=== PATIENT | male | born 1955 | race Caucasian/White ===

== ENCOUNTER 2017-02-23 11:57 | Emergency (ER) | payer OTHER ==
[2017-02-23 12:01] VITALS: TEMP 98.1; BMI 30.2
[2017-02-23] MEDS ORDERED: OXYCODONE/APAP 5/325MG COMBO TABLET PO ONE (12:10)
[2017-02-23] MEDS ORDERED: OXYCODONE/APAP 5/325MG COMBO TABLET ONE (12:13)
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
[2017-02-23 12:25] VITALS: BP 159/93
[2017-02-23 12:36] VITALS: PULSE 87
== END 2017-02-23 12:40 | disposition home or self-care (01) ==
LOC: FER 11:57
DX: S46.911A Strain of unspecified muscle, fascia and tendon at shoulder and upper arm level, right arm, initial encounter (principal); V42.5XXA Car driver injured in collision with two- or three-wheeled motor vehicle in traffic accident, initial encounter; Y93.89 Activity, other specified; Y92.410 Unspecified street and highway as the place of occurrence of the external cause; I10 Essential (primary) hypertension; K21.9 Gastro-esophageal reflux disease without esophagitis; E78.00 Pure hypercholesterolemia, unspecified
CPT/HCPCS: 99282-25

== ENCOUNTER 2018-01-16 06:22 | Day surgery (SDC) | payer OTHER ==
[2018-01-14 14:02] VITALS: BMI 30.7
[2018-01-16] MEDS ORDERED: LIDOCAINE 1%/EPI 1:100000 (20 ML MULTI DOSE VIAL) ONE (07:23)
[2018-01-16] MEDS ORDERED: BUPIVACAINE HCL/PF 0.5% (5MG/ML) 10 ML VIAL ONE (07:24)
[2018-01-16] MEDS ORDERED: SUCCINYLCHOLINE CHLORIDE 200 MG/10 ML VIAL ONE (08:01)
[2018-01-16] MEDS ORDERED: MIDAZOLAM HCL 2 MG/2 ML SINGLE DOSE VIAL ONE (08:01)
[2018-01-16] MEDS ORDERED: PROPOFOL 20 ML ONE (08:01)
--- NOTE | 2018-01-16 08:05 | HP ---
Satellite [facility] - Chief Complaint Chief Complaint: LEFT KNEE PAIN History Source: Patient - Past Medical History Allergies/Adverse Reactions: Allergies Allergy/AdvReac Type Severity Reaction Status Date / Time No Known Allergies Allergy Verified 02/23/17 11:58 - Current Medications Current Medications: Home Medications Medication Instructions Recorded Amlodipine Besylate [Norvasc -] 10 mg PO DAILY #0 tablet 08/03/13 Aspirin Coated [Ecotrin -] 81 mg PO DAILY #0 tablet.ec 08/03/13 Lansoprazole [Prevacid] 30 mg PO DAILY #0 capsule.dr 08/03/13 Saxagliptin HCl [Onglyza] 5 mg PO DAILY #0 tablet 08/03/13 Valsartan [Diovan] 320 mg PO DAILY #0 tablet 08/03/13 metFORMIN HCL [Glucophage -] 500 mg PO BID #0 tablet 08/03/13 Atorvastatin Ca [Lipitor] 10 mg PO HS 02/23/17 Canagliflozin [Invokana] 100 mg PO DAILY 02/23/17 Glipizide 10 mg PO BID 02/23/17 Dulaglutide [Trulicity] 0.75 mg SQ WEEKLY 01/14/18 Satellite Physical Exam - Physical Examination Vital Signs: Vital Signs Period Temp Pulse Resp BP Sys/Rivera Pulse Ox Last 24 Hr 98.2 F 74 18 149/70 95 Extremities: Other (+ JOINT LINE TENDERNESS) Satellite Impression/Plan - Impression/Plan Impression: INTERNAL DERANGEMENT LEFT KNEE Operative Procedure: ARTHROSCOPY LEFT KNEE Date to be Performed: 01/16/18
[2018-01-16] MEDS ORDERED: BUPIVACAINE HCL/PF 0.5% (5MG/ML) 10 ML VIAL IJ ONE ×2 (08:21→08:29)
[2018-01-16] MEDS ORDERED: LIDOCAINE 1%/EPI 1:100000 (20 ML MULTI DOSE VIAL) IJ ONE ×2 (08:21→08:29)
[2018-01-16] MEDS ORDERED: DEXAMETHASONE SOD PHOSPHATE 4 MG/1 ML VIAL ONE (08:22)
[2018-01-16] MEDS ORDERED: LIDOCAINE HCL/PF 2% SDV 5ML VIAL ONE (08:22)
--- NOTE | 2018-01-16 08:49 | OP ---
Operative Note - Note: Operative Date: 01/16/18 Pre-Operative Diagnosis: internal drangement left knee Operation: arthroscopy left knee with partial mm and lm Post-Operative Diagnosis: Same as Pre-op Surgeon: Zhen Schrader Anesthesia: General Operative Report Dictated: Yes
[2018-01-16 09:31] VITALS: TEMP 97.9
[2018-01-16] MEDS ORDERED: PROMETHAZINE HCL 25 MG/1 ML VIAL IVPB PRN (09:49)
[2018-01-16] MEDS ORDERED: ONDANSETRON 4 MG/2 ML VIAL IVPUSH PRN (09:49)
[2018-01-16] MEDS ORDERED: oxyCODONE HCL 5 MG TABLET PO PRN (09:49)
[2018-01-16] MEDS ORDERED: LACTATED RINGERS SOLUTION 1,000 ML IV SCH (10:00)
[2018-01-16] MEDS ORDERED: oxyCODONE HCL 5 MG TABLET PO ONE (10:04)
--- NOTE | 2018-01-16 10:38 | OP ---
DATE OF OPERATION: 01/16/2018 PREOPERATIVE DIAGNOSIS: Internal derangement, left knee. POSTOPERATIVE DIAGNOSIS: Internal derangement, left knee. PROCEDURE: Arthroscopy left knee with partial medial and lateral meniscectomies. SURGEON: Zhen Schrader MD ANESTHESIA: General with LMA. CLOSURES: 4-0 nylon. COMPLICATIONS: None. CONDITION: To recovery room in stable condition. DESCRIPTION OF PROCEDURE: The patient was taken to the operating room on January 16, 2018. General anesthesia with LMA was administered by the anesthesiologist. The left lower extremity was prepped and draped in the usual sterile fashion. The medial and lateral infrapatellar portal sites were infiltrated with 1% Xylocaine with epinephrine. Both ports were then made with 15 blade by a blunt trocar. The scope was placed in the lateral infrapatellar port up to the suprapatellar pouch. The knee was then infiltrated with a cocktail of 10 mL of 1% Xylocaine, 10 mL 0.5% Marcaine, and 20 mL of arthroscopic saline. The undersurface of the patella and trochlea were visualized to be intact. The medial and lateral gutters were visualized to be intact. With valgus stress on the knee, the medial compartment was entered. Medial meniscus was visualized and found to have a complex tear of its posterior horn. This was debrided back to normal, stable meniscal tissue using a meniscal biter and arthroscopic shaver. The medial femoral tunnel was run and found to be basically intact. At 90 degrees, the ACL was visualized and probed and found to be intact. In a figure-4 position, lateral compartment was entered. Lateral meniscus had some radial tearing of its midportion. This was debrided back to normal, stable, meniscal tissue with meniscal biter and arthroscopic shaver. Lateral and femoral condyles were run and found to be intact as was the lateral tibial plateau. The knee was irrigated with copious amounts of irrigation. The port was closed with 4-0 nylon. Prior to closure, 20 mL of 0.5% Marcaine was infused into the knee for postoperative analgesia. A sterile pressure dressing was placed over the knee. The patient was awakened from anesthesia and transferred to recovery in stable condition. No complications. Estimated blood loss negligible. Geronimo [id number]
[2018-01-16 11:31] VITALS: BP 135/79; PULSE 90
--- NOTE | 2018-01-19 15:34 | PATH ---
Surgical Pathology Report Patient Name: VALENTÍN QUAN Med. Rec. #: [id number] /Age/Gender: 1955 (Age: 62) / M Account: [id number] Location: [facility] SURGICAL Taken: 01/16/2018 Received: 01/16/2018 Reported: 01/19/2018 Physicians: Zhen Schrader M.D. Specimen(s) Received LEFT KNEE SHAVINGS Clinical History Left knee meniscus tear Final Diagnosis KNEE SHAVINGS, LEFT, ARTHROSCOPY AND PARTIAL MENISCUS MEDIAL LATERAL REPAIR: FRAGMENTS OF CARTILAGE, DENSE FIBROCONNECTIVE TISSUE, ADIPOSE TISSUE, AND SYNOVIUM. Electronically Signed Chio Blanco M.D. Gross Description Received in formalin, labeled "left knee shavings," is a 4.5 x 4.0 x 0.4 cm. aggregate of álvarez-yellow soft tissue fragments. A scheduling representative portion is submitted in one cassette. /01/16/2018 saudi01/16/2018
== END 2018-01-16 12:04 | disposition home or self-care (01) ==
LOC: JASU-SURG 06:22
PROVIDERS: ATTEND Orthopaedic Surgery
PROC: 0SBD4ZZ Excision of Left Knee Joint, Percutaneous Endoscopic Approach (ICD-10-PCS; 2018-01-16)
PROC: 0SBD4ZZ Excision of Left Knee Joint, Percutaneous Endoscopic Approach (ICD-10-PCS; principal; 2018-01-16 08:00)
DX: M23.92 Unspecified internal derangement of left knee (principal)
CPT/HCPCS: 82962; 88304-TC; 94760

== ENCOUNTER 2018-02-05 14:25 | Emergency (ER) | payer OTHER ==
[2018-02-05 14:50] VITALS: BMI 31.3
--- NOTE | 2018-02-05 14:52 | PDOC ---
Rapid Medical Evaluation Time Seen by Provider: 02/05/18 14:49 Medical Evaluation: Allergies Allergy/AdvReac Type Severity Reaction Status Date / Time No Known Allergies Allergy Verified 02/05/18 14:47 02/05/18 14:49 I have performed a brief in-person evaluation of this patient. The patient presents with a chief complaint of: left lower leg pain since Friday with swelling in calf. Seen at radiology today and found to have a clot in left lower leg. Denies shortness of breath Pertinent physical exam findings: NAD even and unlabored breathing swelling noted in left lower leg I have ordered the following: iv access and labs ordered The patient will proceed to the ED for further evaluation.
--- NOTE | 2018-02-05 15:49 | PDOC ---
History of Present Illness - General Chief Complaint: Revisit,Radiology Variance Stated Complaint: SWOLLEN LEFT LEG Time Seen by Provider: 02/05/18 14:49 - History of Present Illness Initial Comments: 62 year old male with PMH of HTN, HLD, DM, and recent left knee arthroscopy approximately 20 days prior presenting with left leg DVT from ultrasound. HE only complains of light pain and swelling in his left leg for the past 4 days. Denies nausea, vomiting, fevers, SOB, chest pain, cough, hemoptysis, lightheadedness, or other symptoms. 02/05/18 16:29 Past History - Past Medical History Allergies/Adverse Reactions: Allergies Allergy/AdvReac Type Severity Reaction Status Date / Time No Known Allergies Allergy Verified 02/05/18 14:47 Home Medications: Ambulatory Orders Amlodipine Besylate [Norvasc -] 10 mg PO DAILY #0 tablet 08/03/13 Aspirin Coated [Ecotrin -] 81 mg PO DAILY #0 tablet.ec 08/03/13 Lansoprazole [Prevacid] 30 mg PO DAILY #0 capsule. 08/03/13 Saxagliptin HCl [Onglyza] 5 mg PO DAILY #0 tablet 08/03/13 Valsartan [Diovan] 320 mg PO DAILY #0 tablet 08/03/13 metFORMIN HCL [Glucophage -] 500 mg PO BID #0 tablet 08/03/13 Atorvastatin Ca [Lipitor] 10 mg PO HS 02/23/17 Canagliflozin [Invokana] 100 mg PO DAILY 02/23/17 Glipizide 10 mg PO BID 02/23/17 Dulaglutide [Trulicity] 0.75 mg SQ WEEKLY 01/14/18 Oxycodone HCl/Acetaminophen [Percocet 5-325 mg Tablet -] 1 - 2 tab PO Q6H #60 tab MDD 6 01/16/18 Rivaroxaban [Xarelto -] 15 mg PO BID #28 tab 02/05/18 Anemia: No Asthma: No Cancer: No Cardiac Disorders: Yes (HTN) CVA: No COPD: No CHF: No Dementia: No Diabetes: Yes (REFLUX) GI Disorders: No Disorders: No HTN: Yes Hypercholesterolemia: Yes Liver Disease: No Seizures: No Thyroid Disease: No - Surgical History Abdominal Surgery: Yes (ABD HERNIA REPAIR) Appendectomy: No Cardiac Surgery: No Cholecystectomy: Yes Lung Surgery: No Neurologic Surgery: No Orthopedic Surgery: Yes (ARTHROSCOPY RIGHT KNEE) - Suicide/Smoking/Psychosocial Hx Smoking History: Never smoked Hx Alcohol Use: Yes (occas) Drug/Substance Use Hx: No Substance Use Type: Alcohol Hx Substance Use Treatment: No Review of Systems - Review of Systems Constitutional: No: Chills, Diaphoresis, Fever, Loss of Appetite HEENTM: No: Blurred Vision, Double Vision Respiratory: No: Cough, Orthopnea, Shortness of Breath, Wheezing Cardiac (ROS): No: Chest Pain, Edema, Irregular Heart Rate ABD/GI: No: Constipated, Diarrhea, Nausea, Vomiting : No: Burning, Dysuria, Discharge Musculoskeletal: Yes: Muscle Pain. No: Back Pain, Joint Pain Integumentary: Yes: Lumps. No: Bruising, Lesions Neurological: No: Headache, Numbness, Paresthesia Endocrine: No: Excessive Sweating, Flushing Hematologic/Lymphatic: No: Anemia, Blood Clots, Easy Bleeding *Physical Exam - Vital Signs Last Vital Signs Temp Pulse Resp BP Pulse Ox 98.4 F 112 H 19 120/67 96 02/05/18 14:48 02/05/18 14:48 02/05/18 14:48 02/05/18 14:48 02/05/18 14:48 - Physical Exam General Appearance: Yes: Nourished, Appropriately Dressed. No: Apparent Distress HEENT: positive: EOMI, OSBALDO, Normal ENT Inspection, Normal Voice Neck: positive: Trachea midline, Normal Thyroid, Supple. negative: Tender, Rigid Respiratory/Chest: positive: Lungs Clear, Normal Breath Sounds. negative: Chest Tender, Respiratory Distress, Accessory Muscle Use Cardiovascular: positive: Regular Rhythm, Regular Rate Gastrointestinal/Abdominal: positive: Normal Bowel Sounds, Flat, Soft. negative : Tender Rectal Exam: positive: deferred Lymphatic: positive: Tenderness. negative: Adenopathy Musculoskeletal: positive: Other (left calf swelling with pain on extension). negative: Normal Inspection, CVA Tenderness Extremity: positive: Tender, Swelling (left calf swelling), Calf Tenderness. negative: Normal Capillary Refill, Normal Inspection, Normal Range of Motion Neurologic: positive: Fully Oriented, Alert, Normal Mood/Affect, Normal Response , Motor Strength 5/5 ED Treatment Course - LABORATORY CBC & Chemistry Diagram: 02/05/18 15:45 02/05/18 15:45 Medical Decision Making - Medical Decision Making 62 year old male with positive left proximal DVT. Labs demonstrating elevated creatinine to 1.8 with BUN of 22 likely from dehydration as mucous membranes are slightly dry. This ia a provoked left lower extremity DVT. Attempted to reach Dr. Faustin for baseline labs. One dose Xarelto given here and will continue 15 BID for 21 days. Will send home patient with renal follow up Gustavo, pcp follow up with Roxie, and vascular follow up with Melanie. 02/05/18 16:55 *DC/Admit/Observation/Transfer Diagnosis at time of Disposition: DVT (deep venous thrombosis) Qualifiers: DVT location: lower extremity Affected thrombotic vein of extremity: popliteal Chronicity: acute Laterality: left Qualified Code(s): I82.432 - Acute embolism and thrombosis of left popliteal vein - Discharge Dispostion Disposition: HOME Condition at time of disposition: Stable Decision to Admit order: No - Prescriptions Prescriptions: Rivaroxaban [Xarelto -] 15 mg PO BID #28 tab - Referrals Referrals: Pierre Faustin MD [Primary Care Provider] - Norman Patel MD [Staff Physician] - Chastity Chen MD [Staff Physician] - - Patient Instructions Printed Discharge Instructions: DI for Deep Vein Thrombosis Additional Instructions: You have a clot in your left leg. Please tae your Xarelto twice daily for the next 3 weeks but we are only giving you a two week supply because you need to follow up with Dr. Navarro (vascular surgeon) within the next few days in order to evaluate your clot. Please also follow up Dr. Rose vasquez of your renal function that we discussed. You should also see Dr. Faustin to repeat your labs. - Post Discharge Activity
[2018-02-05 16:00] LABS: BASO % 0.6 % (0-2.0); EOS % 0.8 % (0-4.5); HEMOGLOBIN 15.1 GM/dL (11.7-16.9); LYMPH % 17.5 % (8-40); MCH 29.1 pg (25.7-33.7); MCHC 32.9 g/dl (32.0-35.9); MEAN CELL VOLUME 88.4 fl (80-96); MEAN PLT VOLUME 9.8 fl (7.5-11.1); NEUT % 70.1 % (42.8-82.8); PLATELET COUNT 200 K/MM3 (134-434); RDW 12.8 % (11.9-15.9); WHITE BLOOD COUNT 14.6 K/mm3 (4.0-10.0)
[2018-02-05 16:16] LABS: ALBUMIN 3.7 g/dl (3.4-5.0); ALK PHOS 83 U/L (45-117); ANION GAP 7 (8-16); BILIRUBIN,TOTAL 0.6 mg/dL (0.2-1.0); BLOOD UREA NITROGEN 22 mg/dL (7-18); CHLORIDE 101 mmol/L (98-107); CO2 30 mmol/L (21-32); CREATININE 1.8 mg/dL (0.7-1.3); GLUCOSE,RANDOM 176 mg/dL (74-106); POTASSIUM 3.9 mmol/L (3.5-5.1); SGOT/AST 18 U/L (15-37); SGPT/ALT 33 U/L (12-78); SODIUM 138 mmol/L (136-145); TOT PROT 7.5 g/dl (6.4-8.2)
[2018-02-05 16:17] LABS: INR 1.1 (0.82-1.09); PROTHROMBIN TIME (PATIENT) 12.4 SEC (9.7-13.0)
--- NOTE | 2018-02-05 16:22 | PDOC ---
Attending Attestation - [facility] HPI: 02/05/18 16:43 The patient is a 62 year old male, with a significant past medical history of HTN, HLD, DM, and recent left knee arthroscopy approximately 20 days prior presenting , who presents to the emergency department complaining of left calf pain and swelling for the last couple of days. He reports that he recently had surgery on his left knee by Dr. Schrader / Kvng Olsen. He notes that he noticed pain for the first time 3 days ago when he went to Physicial therapy and the swelling was noticed 2 days ago. During this time frame he went to physical therapy once more yesterday and performed the activities through the pain. Today he received an ultrasound of the left calf, revealing a DVT. The patient denies weight loss or history of bleeding disorders. The patient denies chest pain, shortness of breath, headache or dizziness. Denies fever, chills, nausea, vomiting, diarrhea and constipation. Denies dysuria, frequency, urgency and hematuria. Allergies: None Past surgical history: Abdominal hernia repair, right knee arthroscopy Social History: Alcohol use. No tobacco or drug use reported - Physicial Exam PE: 02/05/18 16:43 Constitutional: (+) Obese. Awake, alert, oriented. No acute distress. Head: Normocephalic. Atraumatic Eyes: PERRL. EOMI. Conjunctivae are not pale. ENT: Mucous membranes are moist and intact. Posterior pharynx without exudates or erythema. Uvula midline. Neck: Supple. Full ROM. No lymphadenopathy. Cardiovascular: Regular rate. Regular rhythm. S1, S2 regular. Distal pulses are 2+ and symmetric. Pulmonary/Chest: No evidence of respiratory distress. Clear to auscultation bilaterally No wheezing, rales or rhonchi. Abdominal: Soft and non-distended. There is no tenderness. No rebound, guarding or rigidity. No organomegaly. No palpable masses. Good bowel sounds. Back: No CVA tenderness. Musculoskeletal: No edema. No cyanosis. No clubbing. Full range of motion in all extremities. Nocalf tenderness. Radial/pedal pulses are intact and 2+ bilaterally Extremities: (+) Left knee incision site, well healed, dry and intact. DP and PT pulses intact throughout. Mild left calf swelling. Skin: Skin is warm and dry. No petechiae. No purpura. Neurological: Alert and oriented to person, place, and time. Cranial nerves II -XII are grossly intact. Normal speech. Strength is grossly symmetric. No sensory deficits. Psychiatric: Good eye contact. Normal interaction, affect and behavior. <He Hartman - Last Filed: 02/05/18 16:43> - Resident Resident Name: Gaurav Gibbs - ED Attending Attestation I have performed the following: I have examined & evaluated the patient, The case was reviewed & discussed with the resident, I agree w/resident's findings & plan, Exceptions are as noted - Medical Decision Making 02/05/18 16:20 I, Dr. Ellie Theodore, DO, attest that this document has been prepared under my direction and personally reviewed by me in its entirety. I further attest, that it accurately reflects all work, treatment, procedures and medical decision -making performed by me. 02/05/18 16:20 a/p: 62yo male with L leg swelling -had L knee arthroscopy 3 weeks ago -swelling and calf pain this week - had outpt duplex performed that shows acute DVT -resident discussed with [facility] office and updated that patient will need anticoag -call placed to Dr. Murphy for vasc follow up -will send labs -will start oral anticoags -will be able to d/c to home today 02/05/18 16:56 will start xarelto will need follow up with vasc sx and ortho stable for d/c to home cr 1.8 will need repeat labs for baseline labs with PMD. 02/06/[address] Patel at the bedside to see the patient. <Ellie Theodore - Last Filed: 02/06/18 00:58>
[2018-02-05 16:35] LABS: URINE APPEARANCE SLCLOUDY; URINE BILIRUBIN NEGATIVE (<2.0 mg/dL); URINE COLOR DKYELLOW; URINE GLUCOSE (UA) NEGATIVE (NEGATIVE); URINE KETONE NEGATIVE (NEGATIVE); URINE LEUK ESTERASE NEGATIVE (NEGATIVE); URINE NITRITE NEGATIVE (NEGATIVE); URINE UROBILINOGEN NEGATIVE mg/dL (0.2-1.0)
[2018-02-05] MEDS ORDERED: RIVAROXABAN 15 MG TABLET PO ONE (16:47)
[2018-02-05] MEDS ORDERED: SODIUM CHLORIDE 0.9% 1000 ML INFUS.BAG IV ONE (16:58)
[2018-02-05 17:11] LABS: URINE PROTEIN 1+ (NEGATIVE)
[2018-02-05 17:40] LABS: EPI CELLS RARE /HPF (FEW); URINE HYALINE CAST 1 /lpf; URINE MUCUS MODERATE
[2018-02-05 18:57] VITALS: BP 138/78; PULSE 104; TEMP 98.1
== END 2018-02-05 18:57 | disposition home or self-care (01) ==
LOC: JER 14:25
DX: I82.432 Acute embolism and thrombosis of left popliteal vein (principal); I10 Essential (primary) hypertension; E78.00 Pure hypercholesterolemia, unspecified; E11.9 Type 2 diabetes mellitus without complications; Z79.84 Long term (current) use of oral hypoglycemic drugs
CPT/HCPCS: 36415; 80053; 81003; 81015; 85025; 85379; 85610; 85730; 99283-25; J7030

== ENCOUNTER 2018-08-18 08:25 | Day surgery (SDC) | payer OTHER ==
--- NOTE | 2018-08-18 08:01 | HP ---
Satellite [facility] - Chief Complaint Chief Complaint: left knee pain - Past Medical History Allergies/Adverse Reactions: Allergies Allergy/AdvReac Type Severity Reaction Status Date / Time No Known Allergies Allergy Verified 08/03/18 17:13 - Current Medications Current Medications: Home Medications Medication Instructions Recorded Amlodipine Besylate [Norvasc -] 10 mg PO DAILY #0 tablet 08/03/13 Aspirin Coated [Ecotrin -] 81 mg PO DAILY #0 tablet.ec 08/03/13 Lansoprazole [Prevacid] 30 mg PO DAILY #0 capsule. 08/03/13 Saxagliptin HCl [Onglyza] 5 mg PO DAILY #0 tablet 08/03/13 Glipizide 10 mg PO BID 02/23/17 Metformin HCl [Metformin HCl ER] 1,000 mg PO BID 08/03/18 Multivitamin [Multiple Vitamins] 1 each PO DAILY 08/03/18 Olmesartan/Hydrochlorothiazide 1 each PO DAILY 08/03/18 [Olmesartan-Hctz 40-25 mg Tab] Rivaroxaban [Xarelto -] 20 mg PO DAILY 08/03/18 Rosuvastatin [Crestor -] 5 mg PO HS 08/03/18 Semaglutide [Ozempic] 1 mg SQ WEEKLY 08/03/18 Satellite Physical Exam - Physical Examination General Appearance: Well Nourished, Well Developed, Alert & Oriented x3 ENT: Clear Lung: Normal air movement Heart: Regular rate & rhythm Extremities: Other (left knee- + swelling, + ttp medially, decr rom, nvi xrays show grade 4 medial djd) Neurological: Intact, Alert, Oriented Satellite Impression/Plan - Impression/Plan Impression: left knee medial djd Operative Procedure: left medial jennifer ukr Date to be Performed: 08/18/18
[2018-08-18] MEDS ORDERED: CELECOXIB 200 MG CAPSULE PO ONE (09:13)
[2018-08-18] MEDS ORDERED: CEFAZOLIN 2 GM in DEXTROSE 5%-WATER - 50 ML IVPB ONE (09:13)
[2018-08-18] MEDS ORDERED: ROPIVICAINE 0.2%/MORPH PF/KETOROLAC - 51ML DISP.SYRINGE IA ONE (09:13)
[2018-08-18] MEDS ORDERED: oxyCODONE HCL 10 MG SUSTAINED ACTING TABLET PO ONE (09:13)
[2018-08-18] MEDS ORDERED: TRANEXAMIC ACID 1000 MG/10 ML VIAL IVPUSH ONE (09:13)
[2018-08-18] MEDS ORDERED: GABAPENTIN 300 MG CAPSULE (FP) PO ONE (09:13)
[2018-08-18 09:35] VITALS: BMI 32.2
[2018-08-18] MEDS: INSULIN REGULAR HUMAN 100 UNITS/ML *VIAL ONE ×2 (10:05→10:40)
[2018-08-18] MEDS ORDERED: ceFAZolin SODIUM 1 GM VIAL ONE (10:32)
[2018-08-18] MEDS ORDERED: GELATIN, ABSORBABLE 100 EACH SPONGE TP ONE (10:32)
[2018-08-18] MEDS ORDERED: THROMBIN (RECOMBINANT) 5,000 UNIT VIAL TP ONE (10:32)
[2018-08-18] MEDS ORDERED: PROPOFOL 20 ML ONE ×2 (11:27)
[2018-08-18] MEDS ORDERED: BUPIVACAINE LIPOSOME/PF (EXPAREL) 266 MG/20 ML VIAL ONE (11:30)
[2018-08-18] MEDS ORDERED: MIDAZOLAM HCL 2 MG/2 ML SINGLE DOSE VIAL ONE ×2 (11:31→11:32)
[2018-08-18] MEDS ORDERED: ONDANSETRON 4 MG/2 ML VIAL IVPUSH PRN ×2 (11:46→14:03)
[2018-08-18] MEDS ORDERED: MAG HYDROX/AL HYDROX/SIMETH 30 ML UNIT-DOSE CUP PO PRN (11:46)
[2018-08-18] MEDS ORDERED: LACTATED RINGERS SOLUTION 1,000 ML IV SCH (12:00)
[2018-08-18] MEDS ORDERED: TRANEXAMIC ACID 1000 MG/10 ML VIAL ONE ×2 (13:29→13:36)
--- NOTE | 2018-08-18 13:43 | OP ---
Operative Note - Note: Operative Date: 08/18/18 (amanda) Pre-Operative Diagnosis: left knee medial djd Operation: left medial jennifer ukr Post-Operative Diagnosis: Same as Pre-op Surgeon: Zhen Schrader Graphic Technician: Cosme Hudson Anesthesia: Spinal, Local Specimens Removed: bone fragments Estimated Blood Loss (mls): 150 Operative Report Dictated: Yes
[2018-08-18] MEDS ORDERED: oxyCODONE HCL 5 MG TABLET PO PRN ×2 (14:04)
[2018-08-18] MEDS: INSULIN SLIDING SCALE (NOVOLOG) 1 VIAL SQ SCH ×3 (14:16→21:36)
[2018-08-18] MEDS ORDERED: INSULIN (NOVOLOG) ASPART 100 UNITS/ML 10ML VIAL SQ ONE (14:20)
--- NOTE | 2018-08-18 14:21 | SPEC ---
DATE OF OPERATION: 08/18/2018 PREOPERATIVE DIAGNOSIS: Medial degenerative joint disease, left knee. POSTOPERATIVE DIAGNOSIS: Medial degenerative joint disease, left knee. PROCEDURE: Left medial unicompartmental knee replacement with robotic-assisted navigation (MAKOplasty) and patelloplasty. SURGICAL ATTENDING: Zhen Schrader MD AUTOMOTIVE DETAILER: RADHA Judd ANESTHESIA: Regional and spinal. CLOSURE: Medial unicompartmental [place] components with a 4 femur, 4 tibia, and an 8 polyethylene; No. 1 Vicryl fascia; 0 and 2-0, subcutaneous; 3-0 Monocryl subcuticular with skin glue for skin; 4-0 undyed Vicryl for pin sites. ESTIMATED BLOOD LOSS: Less than 100 mL. COMPLICATIONS: None. CONDITION: To recovery in stable condition. DESCRIPTION OF OPERATIVE PROCEDURE: Patient was taken to the operating room on August 18, 2018. Spinal and regional anesthesia was administered by the anesthesiologist. IV Kefzol and TXA were administered prophylactically prior to the case. A well-padded pneumatic tourniquet was placed on the left proximal thigh. The left lower extremity was prepped and draped in the usual sterile fashion. A 6- to 8-cm longitudinal incision over the medial side of the patella from mid patella to the tibial tubercle was incised and was deepened using Bovie cautery. An arthrotomy was then made just medial to the patellar tendon and the patella. Subperiosteal dissection was done on the anteromedial proximal tibia all the way back to the MCL. Partial fat pad excision was performed, exposing the medial compartment. Checkpoint was malleable at both the femur and the tibia. Using 2 stab incisions in the femur 1 handbreadth above the patella on the femur and 2 stab incisions 1 handbreadth below the tibial tubercle on the tibia, 2 threaded pins were drilled in parallel fashion from anterior to posterior, going through the proximal cortex and engaging the 2nd but not through the 2nd cortex. To these threaded pins were fastened navigation rays, 1 on the femur and 1 on the tibia. The knee was then registered with the navigation device with the center of the rotation of the hip, medial and lateral malleoli, and multiple points both on the femur and on the tibia. Excellent registration of less than 0.5 mm was obtained on both to ensure adequate registration. The navigation device ensured us to "pop the bubbles" both on the femur and the tibia and that was performed and passed registration. The knee was then thoroughly inspected to remove all osteophytes both on the femur and the tibia. Also, osteophytes on the trochlea and on the surface of the patella were removed as well. The knee was then stressed with valgus stress at 0, 30, 60, 90, and 120 degrees of flexion. This propagated a looseness/tightness graft. The virtual positions of the components were then optimized to ensure an excellent graft. The tracking also was optimized by manipulating the virtual position to ensure that the femoral component articulated with the central portion of the tibial component. The robot was then brought into the field and was registered. The robot was used to bur the bone on both the femur and the tibia as to the specifications of the components. The trial components were then applied on both the femur and the tibia with an appropriate polyethylene insert. The knee was taken through a range of motion and found to have full extension, full flexion, with excellent stability. Stressing the graft revealed an excellent looseness/tightness graft with the trial components in place. The trial components were removed. The knee was thoroughly irrigated with a copious amount of antibiotic irrigation. The real components were then cemented in using modern generation cement techniques with antibiotic cement and pressurization. After the cement was hardened, the knee was thoroughly inspected to remove out all excess cement. The real polyethylene insert was then clipped into place. Range of motion and stability were again assessed to be as they were with the trials. At this time, the pins and the checkpoints were removed. The knee was again thoroughly irrigated. The arthrotomy was closed with No. 1 Vicryl, 0 and 2-0 subcutaneous, and 3-0 Monocryl subcuticular with skin glue for the skin, 4-0 undyed Vicryl for the pin sites. Sterile pressure dressing was placed over the knee. Patient awakened from anesthesia and transferred to recovery in stable condition. No complications. Estimated blood loss negligible. X-rays postoperatively revealed excellent position of the components. Geronimo [id number]
[2018-08-18] MEDS ORDERED: ACETAMINOPHEN 325 MG TABLET (FP) PO ONE (14:30)
[2018-08-18] MEDS: glipiZIDE 5 MG TABLET (FP) PO SCH (16:41)
[2018-08-18] MEDS: CEFAZOLIN 2 GM/D5W 2 GM/50 ML ML IVPB SCH (20:07)
[2018-08-18] MEDS: SENNOSIDES/DOCUSATE COMBO (SENNA PLUS) TABLET (UD) PO SCH (21:34)
[2018-08-18] MEDS: oxyCODONE HCL 10 MG SUSTAINED ACTING TABLET PO SCH (21:35)
[2018-08-18] MEDS: ACETAMINOPHEN 325 MG TABLET (FP) PO SCH (21:35)
[2018-08-18] MEDS ORDERED: ROSUVASTATIN CA 5 MG TABLET (FP) PO SCH (22:00)
[2018-08-19] MEDS: ACETAMINOPHEN 325 MG TABLET (FP) PO SCH ×2 (04:48→09:41)
[2018-08-19] MEDS: CEFAZOLIN 2 GM/D5W 2 GM/50 ML ML IVPB SCH (04:48)
[2018-08-19] MEDS: glipiZIDE 5 MG TABLET (FP) PO SCH (06:29)
[2018-08-19] MEDS ORDERED: sitaGLIPtin PHOSPHATE 50 MG TABLET PO SCH (07:00)
[2018-08-19] MEDS: INSULIN SLIDING SCALE (NOVOLOG) 1 VIAL SQ SCH (07:04)
--- NOTE | 2018-08-19 08:08 | PN ---
Progress Note (short form) - Note Progress Note: Ortho Pt seen and examined s/p left medial jennifer ukr pod #1 Selected Entries 08/19/18 06:25 Temperature 98.6 F Pulse Rate 82 Respiratory 18 Rate Blood Pressure 122/64 dressing c/d/i, calf soft, nt rom 0-70, nvi a/p PT dvt ppx pain control d/c home today f/u in 1 week
--- NOTE | 2018-08-19 08:09 | DS ---
Physical Examination Vital Signs: Vital Signs Temperature 98.6 F 08/19/18 06:25 Pulse Rate 82 08/19/18 06:25 Respiratory Rate 18 08/19/18 06:25 Blood Pressure 122/64 08/19/18 06:25 O2 Sat by Pulse Oximetry (%) 97 08/19/18 06:25 Discharge Summary Reason For Visit: OSTEOARTHRITIS Procedures: Principal: left medial jennifer ukr Hospital Course: admitted for elective left medial jennifer ukr, uneventful post-op, stable for d/c Condition: Good - Instructions Diet, Activity, Other Instructions: Post-op Instructions-Partial Knee Replacement Call the office for a follow-up appointment in 1 week - [phone] Aspirin 325mg daily for 6 weeks. Pain medication was sent into your pharmacy. Apply Graduated Compression Stockings (TEDs) to both lower extremities- remove daily for hygiene ONLY Apply Sequential Compression Device (SCDs) to both Lower extremities remove for PT and hygiene ONLY Apply cold packs to affected area for 15 minutes every 2 hours. Physical Therapist will come to your home for the first 5 days. You will be set up with outpatient PT at your first post-operative visit. Patient may ambulate as tolerated-encourage self care (at least every 2-3 hours while awake) with walker or cane Maintain Aquacel (waterproof) dressing to operative wound (will be removed by surgeon at first office visit) Shower with Aquacel dressing in place-if Aquacel integrity compromised, remove and apply dry sterile dressing and notify Orthopedist. DO NOT SHOWER unless Orthopedists approves without Aquacel dressing CONTACT THE OFFICE FOR ANY CHANGE IN YOUR CONDITION (for example-fever greater than 102 degrees, excessive bleeding from operative site, purulent drainage, severe swelling or pain) GO TO THE EMERGENCY ROOM IF THERE IS A MEDICAL EMERGENCY Knee Precautions: * Keep a rolled towel under affected heel while in bed or chair (to keep knee in extension) * Keep affected leg elevated except during mealtimes * DO NOT PLACE PILLOW UNDER AFFECTED KNEE * If you have any questions, please do not hesitate to call the office - . Referrals: Zhen Schrader MD [Staff Physician] - Disposition: VNS/HOME HEALTH CARE - Home Medications Comprehensive Discharge Medication List: Ambulatory Orders Amlodipine Besylate [Norvasc -] 10 mg PO DAILY #0 tablet 08/03/13 Aspirin Coated [Ecotrin -] 81 mg PO DAILY #0 tablet.ec 08/03/13 Lansoprazole [Prevacid] 30 mg PO DAILY #0 capsule. 08/03/13 Saxagliptin HCl [Onglyza] 5 mg PO DAILY #0 tablet 08/03/13 Glipizide 10 mg PO BID 02/23/17 Metformin HCl [Metformin HCl ER] 1,000 mg PO BID 08/03/18 Multivitamin [Multiple Vitamins] 1 each PO DAILY 08/03/18 Olmesartan/Hydrochlorothiazide [Olmesartan-Hctz 40-25 mg Tab] 1 each PO DAILY Rivaroxaban [Xarelto -] 20 mg PO DAILY 08/03/18 Rosuvastatin [Crestor -] 5 mg PO HS 08/03/18 Semaglutide [Ozempic] 1 mg SQ WEEKLY 08/03/18 Oxycodone HCl/Acetaminophen [Percocet 5-325 mg Tablet -] 1 - 2 tab PO Q6H #50 tab MDD 8 08/18/18
[2018-08-19 08:47] VITALS: BP 133/66; PULSE 94; TEMP 98.7
[2018-08-19] MEDS: SENNOSIDES/DOCUSATE COMBO (SENNA PLUS) TABLET (UD) PO SCH (09:40)
[2018-08-19] MEDS: oxyCODONE HCL 10 MG SUSTAINED ACTING TABLET PO SCH (09:40)
[2018-08-19] MEDS ORDERED: amLODIPine BESYLATE 10 MG TABLET (FP) PO SCH (10:00)
[2018-08-19] MEDS ORDERED: VALSARTAN 160 MG TABLET (UD) PO SCH (10:00)
[2018-08-19] MEDS ORDERED: HYDROCHLOROTHIAZIDE 25 MG TABLET (FP) PO SCH (10:00)
[2018-08-19] MEDS ORDERED: MULTIVITAMINS (DAILY MVI) TABLET (FP) PO SCH (10:00)
[2018-08-19] MEDS ORDERED: PANTOPRAZOLE 40 MG TABLET (FP) PO SCH (10:00)
[2018-08-19] MEDS ORDERED: RIVAROXABAN 10 MG TABLET PO SCH (10:00)
[2018-08-19] MEDS ORDERED: ASPIRIN COATED 81 MG TABLET.EC PO SCH (10:00)
--- NOTE | 2018-08-25 15:14 | PATH ---
Surgical Pathology Report Patient Name: VALENTÍN QUAN Med. Rec. #: [id number] /Age/Gender: 1955 (Age: 63) / M Account: [id number] Location: [facility] AMBULATORY Taken: 08/18/2018 Received: 08/18/2018 Reported: 08/25/2018 Physicians: Zhen Schrader M.D. Specimen(s) Received LEFT KNEE BONE Clinical History Left knee osteoarthritis Final Diagnosis BONE, LEFT KNEE, TOTAL KNEE REPLACEMENT: DEGENERATIVE JOINT DISEASE. Electronically Signed Ansley Babb M.D. Gross Description Received in formalin labeled "left knee bone," is a 6.0 x 5.5 x 0.8 cm aggregate of multiple portions of bone and soft tissue, consistent with knee bones. No areas of eburnation are identified. The articular surfaces are álvarez-yellow and diffusely granular. The underlying trabecular bone is yellow and hard. Float Operator sections are submitted in one cassette, following decalcification. 08/19/2018 [facility]08/19/2018
== END 2018-08-19 11:30 | disposition home health service (06) ==
LOC: FASU 08:25 → FM/S 15:28 → FASU 08-19 11:30
PROVIDERS: ATTEND Orthopaedic Surgery
PROC: 8E0YXBZ Computer Assisted Procedure of Lower Extremity (ICD-10-PCS; 2018-08-18)
PROC: 8E0Y0CZ Robotic Assisted Procedure of Lower Extremity, Open Approach (ICD-10-PCS; 2018-08-18)
PROC: 0SRD0L9 Replacement of Left Knee Joint with Medial Unicondylar Synthetic Substitute, Cemented, Open Approach (ICD-10-PCS; principal; 2018-08-18 12:34)
DX: M17.12 Unilateral primary osteoarthritis, left knee (principal)
CPT/HCPCS: 20985; 27446; C1776; S2900; 36415; 73560-TC-LT-FY; 82947; 82962; 88304-TC; 88311-TC; 94760; 97116-GP; 97162-GP

== ENCOUNTER 2018-12-22 05:57 | Day surgery (SDC) | payer OTHER ==
[2018-12-14 19:15] VITALS: BMI 30.2
[2018-12-22] MEDS ORDERED: BUPIVACAINE HCL/PF 0.5% (5MG/ML) 10 ML VIAL ONE (07:00)
[2018-12-22] MEDS ORDERED: LIDOCAINE 1%/EPI 1:100000 (20 ML MULTI DOSE VIAL) ONE (07:00)
[2018-12-22] MEDS ORDERED: SUCCINYLCHOLINE CHLORIDE 200 MG/10 ML VIAL ONE (07:21)
[2018-12-22] MEDS ORDERED: PROPOFOL 20 ML ONE (07:21)
[2018-12-22] MEDS ORDERED: MIDAZOLAM HCL 2 MG/2 ML SINGLE DOSE VIAL ONE (07:22)
--- NOTE | 2018-12-22 07:29 | HP ---
Satellite [facility] - Chief Complaint Chief Complaint: left knee pain - Past Medical History Allergies/Adverse Reactions: Allergies Allergy/AdvReac Type Severity Reaction Status Date / Time No Known Allergies Allergy Verified 12/14/18 19:23 - Current Medications Current Medications: Home Medications Medication Instructions Recorded Amlodipine Besylate [Norvasc -] 10 mg PO DAILY #0 tablet 08/03/13 Aspirin Coated [Ecotrin -] 81 mg PO DAILY #0 tablet.ec 08/03/13 Lansoprazole [Prevacid] 30 mg PO DAILY #0 capsule.dr 08/03/13 Saxagliptin HCl [Onglyza] 5 mg PO DAILY #0 tablet 08/03/13 Glipizide 10 mg PO BID 02/23/17 Multivitamin [Multiple Vitamins] 1 each PO DAILY 08/03/18 Olmesartan/Hydrochlorothiazide 1 each PO DAILY 08/03/18 [Olmesartan-Hctz 40-25 mg Tab] Rosuvastatin [Crestor -] 5 mg PO HS 08/03/18 metFORMIN HCL [Metformin ER 1,000 mg PO BID 08/03/18 Osmotic] Satellite Physical Exam - Physical Examination Vital Signs: Vital Signs Period Temp Pulse Resp BP Sys/Rivera Pulse Ox Last 24 Hr 98.1 F 82 17 139/68 97 General Appearance: Well Nourished, Well Developed, Alert & Oriented x3 ENT: Clear Lung: Normal air movement Heart: Regular rate & rhythm Extremities: Other (left knee- + swelling, + ttp, decr rom, + mcmurrays, nvi MRI + mt) Neurological: Intact, Alert, Oriented Satellite Impression/Plan - Impression/Plan Impression: left knee internal derangement Operative Procedure: left knee arthroscopy Date to be Performed: 12/22/18
[2018-12-22] MEDS ORDERED: ceFAZolin SODIUM 1 GM VIAL ONE (07:34)
[2018-12-22] MEDS ORDERED: LIDOCAINE 1%/EPI 1:100000 (50 ML MULTI DOSE VIAL) INF ONE (07:35)
[2018-12-22] MEDS ORDERED: BUPIVACAINE HCL/PF (5 MG/ML) 30 ML VIAL IJ ONE (07:35)
[2018-12-22] MEDS ORDERED: KETOROLAC TROMETHAMINE 30 MG/1 ML VIAL ONE (07:38)
[2018-12-22] MEDS ORDERED: ONDANSETRON 4 MG/2 ML VIAL ONE (07:38)
[2018-12-22] MEDS ORDERED: DEXAMETHASONE SOD PHOSPHATE 4 MG/1 ML VIAL ONE (07:38)
[2018-12-22 09:52] VITALS: BP 124/71; PULSE 84; TEMP 98
--- NOTE | 2018-12-22 15:36 | OP ---
Operative Note - Note: Operative Date: 12/22/18 (amanda) Pre-Operative Diagnosis: left knee internal derangement s/p ukr Operation: left knee arthroscopy with PLM, removal of loose body Post-Operative Diagnosis: Same as Pre-op Surgeon: Zhen Schrader Anesthesia: General, Local Specimens Removed: shavings, loose body Estimated Blood Loss (mls): 5 Operative Report Dictated: Yes
--- NOTE | 2018-12-22 20:25 | OP ---
DATE OF OPERATION: 12/22/2018 PREOPERATIVE DIAGNOSIS: Internal derangement, left knee. POSTOPERATIVE DIAGNOSIS: Internal derangement, left knee. PROCEDURE: Arthroscopy, left knee, with excision of loose bodies in the left knee. SURGICAL ATTENDING: Zhen Schrader MD ANESTHESIA: LMA. CLOSURE: 4-0 nylon. COMPLICATION: None. CONDITION: To recovery room stable. DESCRIPTION OF OPERATIVE PROCEDURE: Patient was taken to the operating room on December 22, 2018. General anesthesia with LMA was administered by the anesthesiologist. IV Kefzol administered prophylactically prior to case. The left lower extremity was prepped and draped in the usual sterile fashion. The mediolateral and infrapatellar portal sites were then made with 15 blade followed by blunt trocar. Scope was placed in the lateral infrapatellar portal and up to suprapatellar pouch. The knee was inflated with a cocktail of 10 mL of 1% Xylocaine, 10 mL of 0.5% Marcaine, 20 mL of arthroscopic saline. After allowing the anesthetic to work inside the knee, the procedure was performed. The medial and lateral gutters were visualized to be clean. The undersurface of the patella and trochlea were visualized to be intact. The medial compartment was entered. The medial Noe components that were placed previously were found to be in excellent position. There was a small piece of loose cement that was found anteriorly. This was debrided using a grasper. In the notch, I also visualized no loose bodies. The ACL was intact. In the figure-4 position, lateral compartment was entered. Lateral meniscus was visualized, probed, found to be intact. The lateral femoral condyle was run, found to intact, as was lateral tibial plateau. After further inspecting on the medial gutter, there was found to be a large piece of cement that was imbedded in the soft tissue medial to the medial femoral condyle. This was teased out of the soft tissue by using the shaver, then delivered out of the medial incision by use of a grasper. The knee was thoroughly irrigated then and the knee was thoroughly inspected throughout the knee multiple times to ensure that there were no further loose pieces of cement. The fluid was drained from the knee. Then 20 mL of 0.5% Marcaine was infused into the knee for postoperative analgesia. Portals were then closed using 3-0 nylon. Sterile pressure dressing was placed over the knee. Patient awakened from anesthesia and transferred to recovery room in stable condition. No complications. Estimated blood loss negligible. Geronimo [id number]
--- NOTE | 2018-12-24 14:04 | PATH ---
Surgical Pathology Report Patient Name: VALENTÍN QUAN Med. Rec. #: [id number] /Age/Gender: 1955 (Age: 63) / M Account: [id number] Location: [facility] AMBULATORY Taken: 12/22/2018 Received: 12/22/2018 Reported: 12/24/2018 Physicians: Zhen Schrader M.D. Specimen(s) Received LEFT KNEE SHAVINGS Clinical History Left knee internal derangement Final Diagnosis KNEE SHAVINGS, LEFT, ARTHROSCOPY: FRAGMENTS OF CARTILAGE, DENSE FIBROCONNECTIVE TISSUE, ADIPOSE TISSUE, AND REACTIVE SYNOVIUM. Electronically Signed Chio Blanco M.D. Gross Description Received in formalin, labeled "left knee shavings," is a 3.5 x 3.0 x 0.3 cm. aggregate of álvarez-yellow soft tissue fragments. A truck sales representative portion is submitted in one cassette. /12/23/2018 [place]udi12/23/2018
== END 2018-12-22 09:45 | disposition home or self-care (01) ==
LOC: FASU 05:57
PROVIDERS: ATTEND Orthopaedic Surgery
PROC: 0SCD4ZZ Extirpation of Matter from Left Knee Joint, Percutaneous Endoscopic Approach (ICD-10-PCS; principal; 2018-12-22 07:30)
DX: M23.92 Unspecified internal derangement of left knee (principal); M23.42 Loose body in knee, left knee
CPT/HCPCS: 82962; 88304-TC; 94760

== ENCOUNTER 2019-01-01 17:19 | Emergency (ER) | payer OTHER ==
[2019-01-01 17:36] VITALS: BP 142/86; PULSE 100; TEMP 98.3; BMI 30.2
--- NOTE | 2019-01-01 18:20 | PDOC ---
Documentation entered by Josef Gaspar SCRIBE, acting as scribe for Dann Pace MD. Dann Pace MD: This documentation has been prepared by the Hubert medley Nirvannie, SCRIBE, under my direction and personally reviewed by me in its entirety. I confirm that the documentation accurately reflects all work, treatment, procedures, and medical decision making performed by me. History of Present Illness - General Chief Complaint: Revisit,Wound Recheck Stated Complaint: POST OP BRUISE LET THIGH Time Seen by Provider: 01/01/19 17:26 History Source: Patient Exam Limitations: No Limitations - History of Present Illness Initial Comments: 01/01/19 17:54 CC: Left knee bruise HPI: The patient is a 63 year old male, with a significant past medical history of DVT (IVC filter removed), HTN, HLD, DM, and recent left knee arthroscopy, who presents to the emergency department with, a bruise to the left thigh following a left knee arthroscopy for a meniscus repair. As per patient, his surgery was done by Dr. Schrader 10 days ago (12/22), his sutures and bandages were recently removed a few days ago, he has since been able to ambulate without assistance. Patient notes his noticed the bruising to his posterior thigh and given his history of DVT, prompted their arrival to the ED. He denies any calf pain or recent long distance travel. He denies any recent fevers, chills, headache or dizziness. He denies any recent nausea, vomit, diarrhea or constipation. He denies any recent chest pain or shortness of breath. He denies any recent dysuria, frequency, urgency or hematuria. Allergies: NKDA Past surgical history: left knee arthroscopy with PLM, removal of loose body following meniscus repair Social History: Nonsmoker. Denies EtOH use and recreational drug use. Primary Care Physician: Dr. Faustin Past History - Past Medical History Allergies/Adverse Reactions: Allergies Allergy/AdvReac Type Severity Reaction Status Date / Time No Known Allergies Allergy Verified 01/01/19 17:29 Home Medications: Ambulatory Orders Amlodipine Besylate [Norvasc -] 10 mg PO DAILY #0 tablet 08/03/13 Aspirin Coated [Ecotrin -] 81 mg PO DAILY #0 tablet.ec 08/03/13 Lansoprazole [Prevacid] 30 mg PO DAILY #0 capsule. 08/03/13 Saxagliptin HCl [Onglyza] 5 mg PO DAILY #0 tablet 08/03/13 Glipizide 10 mg PO BID 02/23/17 Multivitamin [Multiple Vitamins] 1 each PO DAILY 08/03/18 Olmesartan/Hydrochlorothiazide [Olmesartan-Hctz 40-25 mg Tab] 1 each PO DAILY Rosuvastatin [Crestor -] 5 mg PO HS 08/03/18 metFORMIN HCL [Metformin ER Osmotic] 1,000 mg PO BID 08/03/18 Anemia: No Asthma: No Cancer: No Cardiac Disorders: No (HTN) CVA: No COPD: No CHF: No Dementia: No Diabetes: Yes GI Disorders: Yes (GERD) Disorders: No HTN: Yes Hypercholesterolemia: Yes Liver Disease: No Seizures: No Thyroid Disease: No - Surgical History Abdominal Surgery: Yes (ABD HERNIA REPAIR-UMBILICAL X 2) Appendectomy: No Cardiac Surgery: No Cholecystectomy: Yes Lung Surgery: No Neurologic Surgery: No Orthopedic Surgery: Yes (ARTHROSCOPY LEFT KNEE 01/16/2018, RIGHT KNEE ARTHROSCOPY 2006) - Suicide/Smoking/Psychosocial Hx Smoking History: Never smoked Hx Alcohol Use: Yes (occas) Drug/Substance Use Hx: No Substance Use Type: Alcohol Hx Substance Use Treatment: No Review of Systems - Review of Systems Able to Perform ROS?: Yes Comments:: 01/01/19 17:55 ROS: A complete review of 10 out of 10 review of systems is taken and is negative apart from what is previously mentioned below and in the HPI. *Physical Exam - Physical Exam Comments: 01/01/19 17:55 Exam: Vitals: Triage Vital signs reviewed General Appearance: no acute distress, well nourished well developed, Head: Atraumatic, normocephalic Rectal: Exam deferred Extremities: +[id number] area of ecchymosis to the left posterior thigh. Full range of motion to all extremities. Skin: Warm and dry, no rashes or lesions Neuro: AOX3; Cranial Nerves 2-12 grossly intact Psych: normal mood, normal affect Medical Decision Making - Medical Decision Making 01/01/19 17:56 63 year old male, with a significant past medical history of DVT (IVC filter removed), HTN, HLD, DM, and recent left knee arthroscopy, who presents to the emergency department with, a bruise to the left thigh following a left knee arthroscopy for a meniscus repair. Plan is to: Ultrasound of LLE Reassess Patient status post recent right knee arthroscopy history of DVTs in the past with ecchymosis hind his left thigh no significant Swelling although given patient's history we'll order duplex to rule out DVT Dr. Betsy Huitron to follow up duplex and dispo *DC/Admit/Observation/Transfer Diagnosis at time of Disposition: Superficial bruising of lower leg Qualifiers: Encounter type: initial encounter Laterality: left Qualified Code(s): S80.12XA - Contusion of left lower leg, initial encounter - Discharge Dispostion Condition at time of disposition: Good Decision to Admit order: No - Referrals Referrals: Pierre Faustin MD [Primary Care Provider] - - Patient Instructions - Post Discharge Activity
--- NOTE | 2019-01-01 19:30 | PDOC ---
*Physical Exam - Vital Signs Last Vital Signs Temp Pulse Resp BP Pulse Ox 98.3 F 100 H 17 142/86 95 01/01/19 17:24 01/01/19 17:24 01/01/19 17:24 01/01/19 17:24 01/01/19 17:24 Progress Note - Progress Note Progress Note: Care of this patient was transferred to ar from Dr. Dann Pace at 1900 hrs. Patient is a 63-year-old male who has history of DVTs post surgical procedures. Patient had arthroscopic surgery of his knee recently and now comes in complaining of some ecchymosis and tenderness of his distal to the knee. Patient has an ultrasound Doppler of the leg pending to rule out DVT. On ultrasound patient does have a posterior popliteal DVT on the left. Patient started on DVT treatment Lovenox subcutaneous. First dose was given here in the ED. *DC/Admit/Observation/Transfer Diagnosis at time of Disposition: DVT (deep venous thrombosis) Superficial bruising of lower leg Qualifiers: Encounter type: initial encounter Laterality: left Qualified Code(s): S80.12XA - Contusion of left lower leg, initial encounter - Discharge Dispostion Disposition: HOME Condition at time of disposition: Good - Prescriptions Prescriptions: Enoxaparin Sodium [Lovenox] 100 mg SQ BID #14 ml - Referrals Referrals: Pierre Faustin MD [Primary Care Provider] - - Patient Instructions Additional Instructions: You will inject yourself with one of the Lovenox preloaded syringes twice a day. It is very important that you also call your vascular surgeon Dr. Patel and get an appointment to follow-up on Friday if at all possible. Stop your aspirin while you're taking the Lovenox. Return to the emergency department immediately with ANY new, persistent or worsening symptoms. Continue any medications as previously prescribed by your physician. You should follow up with your primary doctor as soon as possible regarding today's emergency department visit. . Please make sure your doctor reviews the results of your emergency evaluation. Thank you for coming to the Emergency Department today for your care. It was a pleasure to see you today. Please note that your evaluation is INCOMPLETE until you follow-up with your doctor. - Post Discharge Activity
[2019-01-01] MEDS ORDERED: ENOXAPARIN NA (PORCINE) 100 MG/1 ML DISP.SYRIN SQ ONE ×2 (20:43→20:54)
== END 2019-01-01 21:09 | disposition home or self-care (01) ==
LOC: FER 17:19
PROC: 3E013GC Introduction of Other Therapeutic Substance into Subcutaneous Tissue, Percutaneous Approach (ICD-10-PCS; principal; 2019-01-01)
DX: S80.12XA Contusion of left lower leg, initial encounter (principal); Z98.890 Other specified postprocedural states; I10 Essential (primary) hypertension; E78.00 Pure hypercholesterolemia, unspecified; E11.9 Type 2 diabetes mellitus without complications; Z79.84 Long term (current) use of oral hypoglycemic drugs; Z86.718 Personal history of other venous thrombosis and embolism
CPT/HCPCS: 93971-TC; 99282-25

== ENCOUNTER 2020-11-14 06:49 | Day surgery (SDC) | payer OTHER ==
[2020-11-06 09:21] VITALS: BMI 30.7
[2020-11-14] MEDS ORDERED: TRANEXAMIC ACID 1000 MG/10 ML VIAL IVPUSH ONE (07:21)
[2020-11-14] MEDS ORDERED: CEFAZOLIN 2 GM in DEXTROSE 5%-WATER - 50 ML IVPB ONE (07:21)
[2020-11-14] MEDS ORDERED: CELECOXIB 200 MG CAPSULE PO ONE (07:21)
[2020-11-14] MEDS ORDERED: PROPOFOL 20 ML ONE (08:17)
[2020-11-14] MEDS ORDERED: SUCCINYLCHOLINE CHLORIDE 200 MG/10 ML SYRINGE ONE (08:17)
[2020-11-14] MEDS ORDERED: ceFAZolin SODIUM 1 GM VIAL ONE ×2 (08:39→09:30)
[2020-11-14] MEDS ORDERED: SODIUM CHLORIDE 0.9% P/F 10 ML VIAL IJ ONE ×2 (08:40→08:48)
[2020-11-14] MEDS ORDERED: THROMBIN (RECOMBINANT) 5,000 UNIT VIAL TP ONE (08:40)
[2020-11-14] MEDS ORDERED: BUPIVACAINE LIPOSOME/PF (EXPAREL) 266 MG/20 ML VIAL ONE (08:48)
[2020-11-14] MEDS ORDERED: MIDAZOLAM HCL 2 MG/2 ML SINGLE DOSE VIAL ONE (08:48)
[2020-11-14] MEDS ORDERED: MAG HYDROX/AL HYDROX/SIMETH 30 ML UNIT-DOSE CUP PO PRN (09:28)
[2020-11-14] MEDS ORDERED: ONDANSETRON 4 MG/2 ML VIAL IVPUSH PRN (09:28)
[2020-11-14] MEDS ORDERED: LACTATED RINGERS SOLUTION 1,000 ML IV SCH (09:30)
[2020-11-14] MEDS ORDERED: TRANEXAMIC ACID 1000 MG/10 ML VIAL ONE (09:30)
[2020-11-14] MEDS ORDERED: DEXAMETHASONE SOD PHOSPHATE 4 MG/1 ML VIAL ONE (09:33)
[2020-11-14] MEDS ORDERED: GELATIN, ABSORBABLE 100 EACH SPONGE TP ONE (10:00)
[2020-11-14] MEDS ORDERED: THROMBIN (BOVINE) 5,000 UNIT VIAL TP ONE (10:00)
[2020-11-14] MEDS ORDERED: PATIENT'S OWN MEDICATION (NON-FORMULARY) (Metformin Hcl [Metformin Er Osmotic] 1,000 MG Ta PO SCH (10:00)
[2020-11-14] MEDS ORDERED: PATIENT'S OWN MEDICATION (NON-FORMULARY) (Multivitamin [Multiple Vitamins] 1 EACH Tablet) PO SCH (10:00)
[2020-11-14] MEDS ORDERED: LOSARTAN POTASSIUM 50 MG TABLET PO SCH (10:00)
[2020-11-14] MEDS ORDERED: PATIENT'S OWN MEDICATION (NON-FORMULARY) (Losartan Potassium [Losartan Potassium] 100 MG T PO SCH (10:00)
[2020-11-14] MEDS ORDERED: PANTOPRAZOLE 40 MG TABLET PO SCH (10:00)
[2020-11-14] MEDS ORDERED: PATIENT'S OWN MEDICATION (NON-FORMULARY) (Lansoprazole [Prevacid] 30 MG Capsule.Dr) PO SCH (10:00)
[2020-11-14] MEDS ORDERED: BUPIVICAINE 0.25%/MORPH PF/KETOROLAC - 51ML DISP.SYRINGE IA ONE (10:13)
[2020-11-14] MEDS ORDERED: oxyCODONE HCL 5 MG TABLET PO PRN (11:10)
[2020-11-14] MEDS ORDERED: ACETAMINOPHEN 325 MG TABLET (FP) PO SCH (11:15)
[2020-11-14] MEDS ORDERED: INSULIN (NOVOLOG) ASPART 100 UNITS/ML 10ML VIAL SQ SCH (16:30)
[2020-11-14] MEDS ORDERED: glipiZIDE 10 MG TABLET (FP) PO SCH (16:30)
[2020-11-14] MEDS: oxyCODONE HCL 5 MG TABLET PO PRN (17:01)
[2020-11-14] MEDS: ACETAMINOPHEN 325 MG TABLET (FP) PO SCH (18:41)
[2020-11-14] MEDS: CEFAZOLIN 2 GM/D5W 2 GM/50 ML ML IVPB SCH (18:43)
[2020-11-14] MEDS: INSULIN SLIDING SCALE (NOVOLOG) 1 VIAL SQ SCH (18:47)
[2020-11-14] MEDS: SENNOSIDES/DOCUSATE COMBO (SENNA PLUS) TABLET (UD) PO SCH (21:10)
[2020-11-14] MEDS ORDERED: ROSUVASTATIN CA 5 MG TABLET (FP) PO SCH (22:00)
[2020-11-14] MEDS ORDERED: oxyCODONE HCL 10 MG SUSTAINED ACTING TABLET PO SCH (22:00)
[2020-11-15] MEDS: ACETAMINOPHEN 325 MG TABLET (FP) PO SCH ×3 (00:45→12:00)
[2020-11-15] MEDS: CEFAZOLIN 2 GM/D5W 2 GM/50 ML ML IVPB SCH (01:29)
[2020-11-15] MEDS: INSULIN SLIDING SCALE (NOVOLOG) 1 VIAL SQ SCH ×2 (06:19→12:41)
[2020-11-15] MEDS ORDERED: INSULIN (LEVEMIR) 100 UNITS/ML UNITS SQ SCH (07:00)
[2020-11-15] MEDS ORDERED: sitaGLIPtin PHOSPHATE 50 MG TABLET PO SCH (07:00)
[2020-11-15] MEDS ORDERED: ASPIRIN 325 MG TABLET PO SCH (08:00)
[2020-11-15 09:47] VITALS: BP 136/53; PULSE 80; TEMP 97.9
[2020-11-15] MEDS ORDERED: amLODIPine BESYLATE 10 MG TABLET (FP) PO SCH (10:00)
[2020-11-15] MEDS ORDERED: PANTOPRAZOLE 40 MG TABLET PO SCH (10:00)
[2020-11-15] MEDS ORDERED: LOSARTAN POTASSIUM 50 MG TABLET PO SCH (10:00)
[2020-11-15] MEDS ORDERED: HYDROCHLOROTHIAZIDE 25 MG TABLET (FP) PO SCH (10:00)
[2020-11-15] MEDS: oxyCODONE HCL 5 MG TABLET PO PRN (10:08)
[2020-11-15] MEDS: MULTIVITAMINS (DAILY MVI) TABLET (FP) PO SCH ×2 (10:09→10:10)
[2020-11-15] MEDS: SENNOSIDES/DOCUSATE COMBO (SENNA PLUS) TABLET (UD) PO SCH (10:10)
== END 2020-11-15 13:39 | disposition home health service (06) ==
LOC: FASUSAT 06:49 → EDSTATUS 09:30 → FM/S 14:31 → FASUSAT 11-15 13:39
PROVIDERS: ATTEND Orthopaedic Surgery
PROC: 8E0YXBZ Computer Assisted Procedure of Lower Extremity (ICD-10-PCS; 2020-11-14)
PROC: 0SRC0JZ Replacement of Right Knee Joint with Synthetic Substitute, Open Approach (ICD-10-PCS; 2020-11-14)
PROC: 0SRC0L9 Replacement of Right Knee Joint with Medial Unicondylar Synthetic Substitute, Cemented, Open Approach (ICD-10-PCS; principal; 2020-11-14 09:30)
DX: M17.11 Unilateral primary osteoarthritis, right knee (principal)
CPT/HCPCS: 20985; 27446; C1776; 73560-TC-RT-FY; 82962; 94760; 97010-GP; 97116-GP; 97161-GP

== ENCOUNTER 2020-11-21 22:33 | Emergency (ER) | payer OTHER ==
[2020-11-21 22:47] VITALS: TEMP 98.7; BMI 29.7
[2020-11-21 23:23] LABS: BASO % 1.8 % (0-2.0); EOS % 0.9 % (0-4.5); HEMATOCRIT 43.5 % (35.4-49); HEMOGLOBIN 14.4 GM/dl (11.7-16.9); MCHC 33.1 g/dl (32.0-35.9); MEAN CELL VOLUME 90.6 fl (80-96); MEAN PLT VOLUME 8.9 fl (7.5-11.1); MONO % 8.7 % (3.8-10.2); NEUT % 66.6 % (42.8-82.8); PLATELET COUNT 243 K/MM3 (134-434); RDW 12.3 % (11.9-15.9); WHITE BLOOD COUNT 12.2 K/mm3 (4.0-10.8)
[2020-11-21 23:39] LABS: ALBUMIN 3.9 g/dl (3.4-5.0); BILIRUBIN,TOTAL 0.9 mg/dl (0.2-1); CALCIUM 8.8 mg/dl (8.5-10); CREATININE 1.7 mg/dl (0.55-1.3); POTASSIUM 3.7 mmol/L (3.5-5.1); TOT PROT 7.2 g/dl (6.4-8.2)
[2020-11-21] MEDS ORDERED: cefTRIAXone SODIUM 1 GM VIAL ONE (23:41)
[2020-11-21] MEDS ORDERED: CEFTRIAXONE 1,000 MG in DEXTROSE 5%-WATER - 50 ML IVPB ONE (23:43)
[2020-11-21] MEDS ORDERED: SODIUM CHLORIDE 1,000 ML IV STA (23:50)
[2020-11-21 23:59] VITALS: BP 144/78; PULSE 108
== END 2020-11-22 00:49 | disposition home or self-care (01) ==
LOC: FER 22:33
PROC: 3E03329 Introduction of Other Anti-infective into Peripheral Vein, Percutaneous Approach (ICD-10-PCS; principal; 2020-11-21)
PROC: 3E0337Z Introduction of Electrolytic and Water Balance Substance into Peripheral Vein, Percutaneous Approach (ICD-10-PCS; 2020-11-21)
DX: R31.9 Hematuria, unspecified (principal); R33.8 Other retention of urine; N30.91 Cystitis, unspecified with hematuria
CPT/HCPCS: 36415; 80053; 81003; 81015; 85025; 87086; 99284-25

== ENCOUNTER 2021-06-15 04:37 | Day surgery (SDC) | payer OTHER ==
[2021-06-14 08:18] VITALS: BMI 29.5
[2021-06-15] MEDS ORDERED: DEXMEDETOMIDINE HCL 200 MCG/2 ML IVPB ONE (07:02)
[2021-06-15] MEDS ORDERED: SUCCINYLCHOLINE CHLORIDE 200 MG/10 ML SYRINGE ONE (07:08)
[2021-06-15] MEDS ORDERED: LIDOCAINE HCL/PF 2% SDV 5ML VIAL ONE (07:11)
[2021-06-15] MEDS ORDERED: LIDOCAINE HCL 2% JELLY (5 ML/TUBE) ONE (07:11)
[2021-06-15] MEDS ORDERED: PROPOFOL 20 ML ONE ×2 (07:12)
[2021-06-15] MEDS ORDERED: MIDAZOLAM HCL 2 MG/2 ML SINGLE DOSE VIAL ONE (07:12)
[2021-06-15] MEDS ORDERED: KETAMINE HCL 200 MG/20 ML VIAL ONE (07:13)
[2021-06-15] MEDS ORDERED: ceFAZolin SODIUM 1 GM VIAL ONE (07:15)
[2021-06-15] MEDS ORDERED: ACETAMINOPHEN 1000 MG/100 ML VIAL (NON FORMULARY) IVPB ONE (07:20)
[2021-06-15] MEDS ORDERED: DEXTROSE 5%-0.45% SALINE 1,000 ML IV SCH (07:30)
[2021-06-15] MEDS ORDERED: IBUPROFEN 800 MG/8 ML IJ IVPB SCH (07:30)
[2021-06-15] MEDS ORDERED: ceFAZolin 2 GRAM PREMIX BAG IVPB ONE (07:45)
[2021-06-15] MEDS ORDERED: ACETAMINOPHEN 500 MG TABLET (FP) PO PRN (08:47)
[2021-06-15] MEDS ORDERED: ACETAMINOPHEN INJECTION 100 ML IVPB ONE (09:03)
[2021-06-15 12:01] VITALS: BP 136/66; PULSE 90; TEMP 98
== END 2021-06-15 11:30 | disposition home or self-care (01) ==
LOC: JASU-SURG 04:37
PROVIDERS: ATTEND Urology
PROC: 0TCB8ZZ Extirpation of Matter from Bladder, Via Natural or Artificial Opening Endoscopic (ICD-10-PCS; principal; 2021-06-15 07:30)
DX: N21.0 Calculus in bladder (principal)
CPT/HCPCS: 82962; 88300-TC; 94760; J0131

== ENCOUNTER 2022-04-12 04:23 | Day surgery (SDC) | payer OTHER ==
[2022-04-10 12:26] VITALS: BMI 31.0
[2022-04-12] MEDS ORDERED: INSULIN (NOVOLOG) ASPART 100 UNITS/ML 10ML VIAL SQ ONE ×2 (08:15→08:57)
[2022-04-12] MEDS ORDERED: BENZOCAINE 20% 57 GM BOTTLE TP ONE (08:34)
[2022-04-12 09:28] LABS: GLUCOSE,RANDOM 446 mg/dL (74-106)
[2022-04-12 11:27] VITALS: BP 134/71; PULSE 74; RESP 12; TEMP 97
== END 2022-04-12 11:50 | disposition home or self-care (01) ==
LOC: JASU-ENDO 04:23
PROVIDERS: ATTEND Internal Medicine Gastroenterology
PROC: 0DBN8ZX Excision of Sigmoid Colon, Via Natural or Artificial Opening Endoscopic, Diagnostic (ICD-10-PCS; principal; 2022-04-12 08:00)
DX: Z12.11 Encounter for screening for malignant neoplasm of colon (principal); D12.5 Benign neoplasm of sigmoid colon; K57.30 Diverticulosis of large intestine without perforation or abscess without bleeding; K64.8 Other hemorrhoids; Z86.010 Personal history of colon polyps
CPT/HCPCS: 36415; 82947; 82962; 88305-TC

== ENCOUNTER 2024-06-07 08:42 | Observation (INO) | payer OTHER ==
[2024-06-07] MEDS ORDERED: DEXTROSE 50%-WATER 25 GM/50 ML DISP.SYRIN ONE ×2 (09:00→09:03)
[2024-06-07] MEDS: DEXTROSE 50%-WATER - 25 GM/50 ML VIAL IVPUSH ONE (09:11)
[2024-06-07 09:48] LABS: BASO % 0.3 % (0-2.0); EOS % 0.5 % (0-4.5); HEMATOCRIT 46.7 % (35.4-49); HEMOGLOBIN 15.9 GM/dL (11.7-16.9); MCH 30.1 pg (25.7-33.7); MEAN CELL VOLUME 88.5 fl (80-96); MEAN PLT VOLUME 8.6 fl (7.5-11.1); MONO % 6.6 % (3.8-10.2); NEUT % 72.6 % (42.8-82.8); PLATELET COUNT 147 10^3/uL (134-434); RBC 5.28 M/mm3 (4.00-5.60); RDW 13.7 % (11.9-15.9); WHITE BLOOD COUNT 12.3 K/mm3 (4.0-10.0)
[2024-06-07 09:56] LABS: POTASSIUM 3.6 mmol/L (3.5-5.1)
[2024-06-07 09:58] LABS: BLOOD UREA NITROGEN 37.5 mg/dL (7-18); CALCIUM 9.2 mg/dL (8.5-10.1)
[2024-06-07 10:01] LABS: CREATININE 2.1 mg/dL (0.55-1.3)
[2024-06-07 10:03] LABS: BILIRUBIN,TOTAL 0.5 mg/dL (0.2-1); TOT PROT 7.4 g/dl (6.4-8.2)
[2024-06-07] MEDS: SODIUM CHLORIDE 0.9% 500 ML INFUS.BAG IV ONE (11:04)
[2024-06-07 11:37] LABS: URINE APPEARANCE CLEAR; URINE BILIRUBIN NEGATIVE (NEGATIVE); URINE COLOR YELLOW; URINE GLUCOSE (UA) 3+ (NEGATIVE); URINE KETONE NEGATIVE (NEGATIVE); URINE LEUK ESTERASE NEGATIVE (NEGATIVE); URINE NITRITE NEGATIVE (NEGATIVE); URINE PROTEIN NEGATIVE (NEGATIVE); URINE UROBILINOGEN 0.2 mg/dL (0.2-1.0)
[2024-06-08] MEDS: LOSARTAN POTASSIUM 50 MG TABLET PO SCH (09:46)
[2024-06-08] MEDS: TAMSULOSIN HCL 0.4 MG CAP PO SCH (09:47)
[2024-06-08] MEDS: ASPIRIN 81 MG CHEWABLE TABLETS PO SCH (09:47)
[2024-06-08] MEDS: amLODIPine BESYLATE 10 MG TABLET (FP) PO SCH (09:47)
[2024-06-08] MEDS ORDERED: HYDROCHLOROTHIAZIDE 25 MG TABLET (FP) PO SCH (10:00)
[2024-06-08 10:17] LABS: BASO % 0.4 % (0-2.0); HEMATOCRIT 47.1 % (35.4-49); HEMOGLOBIN 15.4 GM/dL (11.7-16.9); LYMPH % 25.7 % (8-40); MCH 29.5 pg (25.7-33.7); MCHC 32.8 g/dl (32.0-35.9); MEAN PLT VOLUME 9.3 fl (7.5-11.1); MONO % 5.9 % (3.8-10.2); PLATELET COUNT 159 10^3/uL (134-434); RBC 5.23 M/mm3 (4.00-5.60); RDW 13.9 % (11.9-15.9); WHITE BLOOD COUNT 8.7 K/mm3 (4.0-10.0)
[2024-06-08 10:58] LABS: POTASSIUM 4.3 mmol/L (3.5-5.1)
[2024-06-08 11:02] LABS: CALCIUM 8.9 mg/dL (8.5-10.1)
[2024-06-08 11:03] LABS: ALBUMIN 3.6 g/dl (3.4-5.0); BLOOD UREA NITROGEN 29.5 mg/dL (7-18); MAGNESIUM 2.1 mg/dL (1.8-2.4)
[2024-06-08 11:05] LABS: CREATININE 1.9 mg/dL (0.55-1.3); PHOSPHOROUS 3.2 mg/dL (2.5-4.9)
[2024-06-08 11:07] LABS: BILIRUBIN,TOTAL 0.7 mg/dL (0.2-1); TOT PROT 6.9 g/dl (6.4-8.2)
[2024-06-08 11:13] LABS: CHOLESTEROL 125 mg/dL (50-200)
[2024-06-08 11:14] LABS: LDL CHOLESTEROL (ONLY SJRH) 63 mg/dL (5-100)
[2024-06-08 11:16] LABS: HDL CHOLESTEROL 47 mg/dL (40-60)
[2024-06-09 03:32] VITALS: RESP 18
[2024-06-09] MEDS: INSULIN (LEVEMIR) 100 UNITS/ML UNITS SQ SCH (06:31)
[2024-06-09 12:01] VITALS: BP 117/63; PULSE 68; TEMP 97.9
[2024-06-09 13:35] VITALS: BMI 31.6
== END 2024-06-09 13:28 | disposition home or self-care (01) ==
LOC: JER 08:42 → JERBED 10:32 → J7W 15:57
PROVIDERS: ADMIT Internal Medicine; ATTEND Internal Medicine
PROC: 3E033GC Introduction of Other Therapeutic Substance into Peripheral Vein, Percutaneous Approach (ICD-10-PCS; principal; 2024-06-07)
PROC: 3E023GC Introduction of Other Therapeutic Substance into Muscle, Percutaneous Approach (ICD-10-PCS; 2024-06-07)
PROC: 3E013VG Introduction of Insulin into Subcutaneous Tissue, Percutaneous Approach (ICD-10-PCS; 2024-06-07)
PROC: 3E0337Z Introduction of Electrolytic and Water Balance Substance into Peripheral Vein, Percutaneous Approach (ICD-10-PCS; 2024-06-07)
DX: N17.9 Acute kidney failure, unspecified (principal); E11.649 Type 2 diabetes mellitus with hypoglycemia without coma; R42 Dizziness and giddiness; N32.89 Other specified disorders of bladder; I10 Essential (primary) hypertension; M19.90 Unspecified osteoarthritis, unspecified site; Z96.698 Presence of other orthopedic joint implants; M62.81 Muscle weakness (generalized); Z86.718 Personal history of other venous thrombosis and embolism
CPT/HCPCS: 36415; 76775-TC; 76856-TC; 80053; 80061; 81003; 82962; 83036; 83735; 84100; 84443; 85025; 87086; 96372; 96374; 99285-25; G0378